=== PATIENT | female | born 1995 | race Caucasian/White ===

== ENCOUNTER 2017-04-16 01:28 | Emergency (ER) | payer MEDICAID ==
[~2017-04-16] VITALS: Ht 175.3 cm; Wt 113.4 kg
[2017-04-16 01:36] VITALS: BP 117/74
== END 2017-04-16 02:52 | disposition left against medical advice (07) ==
LOC: EDBD 01:28 → ER 01:40
DX: R51 Headache (principal); Z53.21 Procedure and treatment not carried out due to patient leaving prior to being seen by health care provider